=== PATIENT | female | born 1985 | race Caucasian/White ===

== ENCOUNTER 2019-10-11 11:13 | Outpatient (CLI) | payer OTHER, SELFPAY ==
--- NOTE | ~2019-10-11 | US_ITS ---
EXAMINATION: US OB <= 14 weeks fetus DATE: 10/11/2019 11:48 INDICATION: Threatened , first trimester TECHNIQUE: Real-time pelvic transabdominal and transvaginal ultrasound was performed. COMPARISON: None. FINDINGS: The uterus measures 9.9 x 5.7 x 5.0 cm. There is an intrauterine gestational sac. There is a there is a 1.7 x 0.9 x 0.4 cm hypoechoic area adjacent to the gestational sac. A yolk sac is ident ified. heart motion is identified measuring 127 beats per minute (bpm) by M-mode Doppler. The f etal crown rump length measures 4 mm , which correlates with an estimated gestational age of 6 weeks and 1 day(s) (+/-) 4 day(s). The left ovary is not visualized however no left adnexal abnormality is seen. The right ovary measure s 2.5 x 2.1 x 1.6 cm. There is no free fluid in the pelvis. IMPRESSION: 1. Live intrauterine with an estimated gestational age of 6 weeks and 1 day(s) (+/-) 4 day( s) and an estimated delivery date of 06/04/2020. 2. Small subchorionic hemorrhage. Reviewed, dictated and finalized at location A. IMPRESSION: 1. Live intrauterine with an estimated gestational age of 6 weeks and 1 day(s) (+/-) 4 day(s) and an estimated delivery date of 06/04/2020. 2. Small subchorionic hemorrhage.
== END 2019-10-11 11:14 | disposition home or self-care (01) ==
LOC: ANHIMG 11:19
PROVIDERS: Visit Provider Obstetrics & Gynecology
DX: O20.0 Threatened abortion (principal); Z3A.01 Less than 8 weeks gestation of pregnancy
CPT/HCPCS: 76801

== ENCOUNTER 2019-12-19 13:42 | Outpatient (CLI) | payer OTHER, SELFPAY ==
--- NOTE | ~2019-12-19 | US_ITS ---
EXAMINATION: US OB limited DATE: 12/19/2019 14:10 INDICATION: Vaginal bleeding during second trimester TECHNIQUE: Real-time ultrasound of the pelvis was performed. The interpreting radiologist was not pre sent for the study. COMPARISON: 10/11/2019 FINDINGS: There is a single living fetus in breech presentation. The placenta is anterior and normal in appearance. cardiac activity and movement are noted. heart rate is 161 beats per minute (bpm). The amniotic fluid index is subjectively normal. IMPRESSION: 1. Single living fetus in breech presentation. 2. No sonographic correlate for the patient's symptoms. Reviewed, dictated and finalized at location A.
== END 2019-12-19 13:43 | disposition home or self-care (01) ==
LOC: ANHIMG 13:48
PROVIDERS: PCP Internal Medicine; Visit Provider Obstetrics & Gynecology
DX: O20.0 Threatened abortion (principal); Z3A.00 Weeks of gestation of pregnancy not specified
CPT/HCPCS: 76815

== ENCOUNTER 2020-03-28 12:38 | Observation (INO) | payer OTHER, SELFPAY ==
[2020-03-28 13:14] VITALS: BP 117/59; PULSE 76
[2020-03-28 13:31] VITALS: BP 115/56; PULSE 76
[2020-03-28 13:56] VITALS: BMI 56.8
[2020-03-28] MEDS: ACETAMINOPHEN 500 MG TABLET 1000 MG PO (13:58)
[2020-03-28 14:05] VITALS: BMI 56.8
--- NOTE | 2020-03-28 14:10 | OBADM ---
This patient, Radha Pozo, admitted to the OB room OB Post 113 for observation. Patient oriented to hospital policies and general routines including ID bracelet, bed and alarms, visiting hours, pain management, procedures, bathroom and other care routines, personal items, smoking policy, room service/diet, call light, and visiting hours. Patient is encouraged to report perceived risks to care and to ask questions if she does not understand what she is told or what she should do.
--- NOTE | 2020-04-01 14:53 | PM.OBTRLD ---
OB - Triage/Final Diagnosis Final Diagnosis (1) Traumatic injury during in third trimester: Code(s): O9A.213 - Injury, poisoning and certain other consequences of external causes complicating , third trimester Status: Acute
== END 2020-03-28 16:16 | disposition home or self-care (01) ==
PROVIDERS: Admitting Provider Obstetrics & Gynecology; PCP Internal Medicine; Visit Provider Obstetrics & Gynecology
DX: O99.893 Other specified diseases and conditions complicating puerperium (principal); W19.XXXA Unspecified fall, initial encounter; Z3A.30 30 weeks gestation of pregnancy
CPT/HCPCS: A9270; G0378; G0379

== ENCOUNTER 2020-05-26 12:51 | Outpatient (CLI) | payer OTHER, SELFPAY ==
[2020-05-26 13:40] LABS: Hematocrit 36.5 % (37.0-47.0); Hemoglobin 12.5 g/dL (12.0-15.0); Mean Corpuscular HGB Conc 34.2 g/dl (32-36); Mean Corpuscular Hemoglobin 30.4 pg (26-34); Mean Corpuscular Volume 88.8 fl (80-100); Mean Platelet Volume 10.5 fl (7.4-10.4); Platelet Count Result 308 k/mm3 (150-375); Red Blood Count 4.11 M/mm3 (4.2-5.4); Red Cell Distribution Width 14.1 % (11.5-14.5); White Blood Count 7.8 K/mm3 (4.5-10.0)
[2020-05-27 10:15] LABS: Rapid Plasma Reagin Non-Reactive (NonReactive)
== END 2020-05-26 12:52 | disposition home or self-care (01) ==
PROVIDERS: PCP Internal Medicine; Visit Provider Obstetrics & Gynecology
DX: Z34.93 Encounter for supervision of normal pregnancy, unspecified, third trimester (principal); Z3A.00 Weeks of gestation of pregnancy not specified
CPT/HCPCS: 36415; 85027; 86592; 86850; 86900; 86901

== ENCOUNTER 2020-05-27 05:38 | Inpatient (IN) | payer OTHER, SELFPAY ==
[2020-05-26 11:20] VITALS: BP 135/76; PULSE 82; RESP 18; TEMP 36.8
--- NOTE | 2020-05-26 12:07 | PM.IMHP ---
H&P: HPI History of Present Illness Date/Time: 05/26/20 12:07 Chief complaint: Pre-admit Narrative: Radha Pozo is a 35 year old female coming in for scheduled repeat C/S + BTL. no complaints today Review of Systems Review of Systems: All systems reviewed & are unremarkable except as noted in HPI and below PMFSH Past Medical History Medical History (Updated 05/26/20 @ 12:11 by Julisa Shen MD) 2004 Anxiety Depression Miscarriage Surgical History Surgical History (Updated 05/26/20 @ 12:09 by Julisa Shen MD) H/O dilation and curettage Previous section 08-18-09, c/s, full term 37w, male, 8#4, Ubaldo, preeclampsia 12-01-10, c/s, full term 37w, male, 7#11, Juan Ramon, GDM Family History Family History Grandparent Diabetes mellitus Cerebrovascular accident Mother Hypertension Social History Social History Smoking status: Former smoker Smoking end date: 10/10/13 Alcohol intake: never Substance use: never Gender identity (if verbalized by the patient): Female Spiritual care concerns: No Meds Home Medications and Allergies Home Medications Medication Instructions Recorded Confirmed Type docosahexaenoic acid 200 mg capsule mg PO 02/08/20 History metformin 500 mg tablet 500 mg PO BID #60 tablet 02/08/20 02/08/20 Rx Allergies Allergy/AdvReac Type Severity Reaction Status Date / Time No Known Allergies Allergy Unknown Verified 05/20/20 10:09 Exam Const: General: healthy appearing and no acute distress Resp: Auscultation: clear to auscultation bilaterally Cardio: Rate: regular rate Rhythm: regular rhythm GI: Inspection: normal to inspection and non-distended GI Palp: Yes Soft to palpation, No Tenderness to palpation present (GI) and Yes Other GI palpation findings present (gravid) Extrem: General: no calf tenderness and edema bilateral (ankles/feet) Psych: Mental Status: mental status grossly normal Assessment and Plan Assessment and plan (1) Previous delivery affecting : Code(s): O34.219 - Maternal care for unspecified type scar from previous delivery Status: Acute Assessment and Plan: Proceed with repeat C section and BTL. She signed consent after risks, benefits, complications, and alternatives discussed. She expressed understanding and wishes to proceed. (2) Pyelectasis of fetus on ultrasound: Code(s): O35.8XX0 - Maternal care for other (suspected) abnormality and damage, not applicable or unspecified Status: Acute Assessment and Plan: Bilateral pyelectasis and possible right sided aortic arch (otherwise normal echocardiogram). Plan for infant to follow up with pediatrics. Recommended echocardiogram at 2 weeks of age
[2020-05-27] VITALS (59 sets, daily range): BP systolic 82–137; BP diastolic 45–88; PULSE 64–111; RESP 12–20; TEMP 36.3–36.9; O2SAT 91–99; BMI 58.7
--- NOTE | 2020-05-27 06:31 | WPDANESEPPF ---
Anes - Initial Pre Proc Eval Procedure: Operation Date: 05/27/20 07:30 Proposed Procedures p Repeat Section with Bilateral Tubal Ligation - Julisa Shen MD Date/Time: 05/27/20 06:31 Surgeon: Julisa Shen MD Pre Op Diagnosis: C/S Patient Data Age: 35 Gender: F Height: 4 ft 10 in Weight: 127.5 kg Last Vital Signs Pulse 104 H 05/27/20 06:20 BP 130/67 05/27/20 06:20 Allergies Allergy/AdvReac Type Severity Reaction Status Date / Time No Known Allergies Allergy Unknown Verified 05/20/20 10:09 Home Medications Medication Instructions Recorded Confirmed Type docosahexaenoic acid 200 mg capsule mg PO 02/08/20 History metformin 500 mg tablet 500 mg PO BID #60 tablet 02/08/20 02/08/20 Rx Patient hx anesthesia problems: none Family hx anesthesia problems: none PMFSH Past Medical History Medical History (Updated 05/27/20 @ 06:31 by Sandor Cantu MD) 2004 Anxiety Depression Miscarriage Morbid obesity Surgical History Surgical History H/O dilation and curettage Previous section 08-18-10, c/s, full term 37w, male, 8#4, Ubaldo, preeclampsia 6-7-11, c/s, full term 37w, male, 7#11, Juan Ramon, GDM Family History Family History Grandparent Diabetes mellitus Cerebrovascular accident Mother Hypertension Social History Social History Smoking status: Former smoker Smoking end date: 10/10/13 Alcohol intake: never Substance use: never Gender identity (if verbalized by the patient): Female Spiritual care concerns: No Anes - Eval Final PreProcedure Day of Procedure 05/27/20 06:31 Patient weight: super morbidly obese Heart: regular rate and rhythm Lungs: clear to auscultation Airway: Mallampati scale class II Neurological: alert and oriented Last oral intake: >/= 8 hours ASA classification: III Emergent: no Anesthetic plan: proceed Anesthesia type and monitoring: regional spinal Informed Consent: The patient's anesthetic plan of spinal and its attendant risks and benefits were discussed with this high risk patient. Questions were solicited and answers provided to the satisfaction of the patient/family/POA.
[2020-05-27] MEDS: LACTATED RINGERS 1,000 ML 999 ML IV CONT ×3 (06:38→14:55)
--- NOTE | 2020-05-27 06:46 | LDADM ---
This patient, Radha Pozo, was admitted to Labor/Delivery/Recovery 120 on 05/27/20 at 05:38. Plans for labor, pain management and were discussed with patient. Patient/family oriented to hospital policies and general routines including ID bracelet, bed and alarms, visiting hours, pain management, procedures, bathroom and other care routines, personal items, smoking policy, room service/diet and guest tray routines, security routines, and visiting hours. Patient/Family are encouraged to report perceived risks to care and to ask questions if they do not understand what they are told or what they should do. See OBIX for further documentation.
--- NOTE | 2020-05-27 07:44 | P.OP_ITS ---
Procedure Note - Detailed Date of procedure: 05/27/20 Pre-op diagnosis: C/S Prior C section, desires sterilization Post-op diagnosis: same Procedure performed: Repeat LTCS + BTL Description of procedure: She was taken to the operating room where spinal anesthesia was obtained and found to be adequate. She was prepared and draped in the normal sterile fashion in the dorsal supine position with a leftward tilt. A Pfannenstiel skin incision was made over her prior incision with a scalpel and extended to the underlying layer of fascia. The fascia was incised in the midline with the scalpel and extended laterally with the Ahumada scissors. The rectus muscles were , and the peritoneum was entered sharply. The peritoneal incision was extended inferiorly and superiorly with good visualization of the bladder. The bladder blade was inserted. The vesicouterine peritoneum was tented up and entered sharply with the Metzenbaum scissors. The bladder flap was created sharply. The bladder blade was reinser kellie. The uterine incision was made in the lower uterine segment in a transverse fashion. The membranes were ruptured with clear fluid noted. The 's head was delivered atraumatically. The shoulders and body were delivered easily. The cord was clamped x2 and cut. The infant was passed to the awaiting nurse. Cord gas and cord blood was obtained. The placenta was manually extracted. The uterus was exteriorized and cleared of all clots and debris. The uterine incision was closed using 0 Vicryl in a running locked fashion. A 2nd layer of the same suture was used for hemostasis and reinforcement. Attention was then turned to the right fallopian tube. The mid isthmic portion of the fallopian tube was grasped with a Kenton clamp. A defect was made in the mesosalpinx with the Bovie cautery. Two free ties of 0 plain gut were placed around the tube, and the intervening segment of fallopian tube was excised using the Metzenbaum scissors. The same procedure was performed on the left fallopian tube. The uterine incision was reinspected and found to be hemostatic. The uterus was returned to the abdomen. The gutters were cleared of all clots and debris. The rectus muscles were inspected. Any bleeding points were cauterized. The rectus muscles were reapproximated using 1 [id number] 0 Vicryl suture. The fascia was then closed using 0 Vicryl in a running fashion. The subcutaneous tissue was irrigated. Any bleeding points were cauterized. The subcutaneous tissue was reapproximated using 2 0 Vicryl [id number] sutures. The skin was then closed with Insorb absorbable erin. She tolerated the procedure well. Sponge, lap, needle, and instrument counts were correct x2. She was taken to the recovery area in stable condition. Anesthesia: spinal Surgeon: Julisa Shen MD Estimated blood loss (mL): 250 Drains: Yes (Hughes) Packing: No Pathology: none sent Complications: No immediate complications Condition: stable Disposition: floor Findings: Male infant, cephalic, Apgars 7/9, weight 7# 15oz, normal uterus, tubes, and ovaries
--- NOTE | 2020-05-27 12:35 | PC.NURSE ---
Addendum entered by Ani Sam RN 05/27/20 12:36: admitted to room 287 at 1109. Original Note: Patient transferred to post room # 287 per stretcher. Support person present. Oriented to unit, room, information board, rooming in, admission packet and security measures. Patient verbalizes understanding.
[2020-05-27] MEDS: KETOROLAC 30 MG/ML VIAL (*BKC) IV PUSH (15:04)
[2020-05-27] MEDS: HYDROcodone/acetaminophen (*CRX) 5-325 MG TABLET 1 TAB PO ×2 (15:04→19:40)
[2020-05-27] MEDS: SIMETHICONE 80 MG TAB.CHEW PO ×2 (15:05→22:44)
[2020-05-27] MEDS: IBUPROFEN 600 MG TABLET PO (22:44)
[2020-05-27] MEDS: HYDROcodone/acetaminophen (*CRX) 10-325 MG TABLET 1 TAB PO (22:44)
[2020-05-28] VITALS: BP 105/56; PULSE 98; RESP 18; TEMP 36.4; O2SAT 98
[2020-05-28 04:00] VITALS: BP 115/59; PULSE 97; RESP 18; TEMP 36.2; O2SAT 98
[2020-05-28] MEDS: IBUPROFEN 600 MG TABLET PO ×3 (04:45→19:42)
[2020-05-28] MEDS: HYDROcodone/acetaminophen (*CRX) 10-325 MG TABLET 1 TAB PO ×4 (04:45→23:41)
[2020-05-28] MEDS: SIMETHICONE 80 MG TAB.CHEW PO ×4 (04:45→19:42)
[2020-05-28 05:35] LABS: Basophils Absolute Auto 0.1 K/mm3 (0.0-0.1); Basophils Percent Auto 0.5 % (0.2-1.2); Eosinophils Absolute Auto 0.2 K/mm3 (0-0.3); Eosinophils Percent Auto 1.7 % (0-4.4); Hemoglobin 9.5 g/dL (12.0-15.0); Immature Granulocyte Absolute 0.05 K/mm3 (0.00-0.031); Immature Granulocyte Percent A 0.5 % (0-0.5); Lymphocytes Absolute Auto 2.94 K/mm3 (0.9-3.2); Lymphocytes Percent Auto 29.4 % (18.3-44.2); Mean Corpuscular HGB Conc 32.8 g/dl (32-36); Mean Corpuscular Hemoglobin 29.9 pg (26-34); Mean Corpuscular Volume 91.2 fl (80-100); Mean Platelet Volume 10.4 fl (7.4-10.4); Monocytes Percent Auto 10.1 % (2.6-8.5); Neutrophils Absolute Auto 5.8 K/mm3 (1.3-6.7); Neutrophils Percent Auto 57.8 % (45.5-73.1); Platelet Count Result 258 k/mm3 (150-375); Red Blood Count 3.18 M/mm3 (4.2-5.4); Red Cell Distribution Width 14.3 % (11.5-14.5)
[2020-05-28] MEDS: DOCUSATE SODIUM 100 MG CAPSULE PO ×2 (07:37→15:19)
[2020-05-28] MEDS: POLYSACCHARIDE IRON COMPLEX 150 MG CAPSULE PO ×2 (07:37→15:19)
--- NOTE | 2020-05-28 07:44 | PM.OBPNVD ---
OB - PN: Subj Subjective Date/time seen: 05/28/20 07:44 Patient comments: no complaints, pain well controlled, incisional pain, tolerating diet, flatus present and other (Lochia similar to menses) baby status: doing well OB - PN: Obj Data Labs CBC & Chem 7: 05/28/20 04:39 Labs: Laboratory Results - last 24 hr 05/28/20 04:39 WBC 10.0 RBC 3.18 L Hgb 9.5 L D Hct 29.0 L MCV 91.2 MCH 29.9 MCHC 32.8 RDW 14.3 Plt Count 258 MPV 10.4 Immature Gran % (Auto) 0.5 Neut % (Auto) 57.8 Lymph % (Auto) 29.4 Rutherford % (Auto) 10.1 H Eos % (Auto) 1.7 Baso % (Auto) 0.5 Lymph # (Auto) 2.94 Rutherford # (Auto) 1.0 H Eos # (Auto) 0.2 Baso # (Auto) 0.1 Abs Immat Gran (auto) 0.05 H Absolute Neuts (auto) 5.8 Absolute Nucleated RBC 0.0 Nucleated RBC % 0.0 OB - PN A/P Plan day: 1 (s/p C section, doing well) Plan: routine care Time Spent With Patient Time: Total time spent is greater than 50% in coordination of care (as documented) at patient's floor/unit and/or counseling patient: Exam Const: General: no acute distress Resp: Auscultation: clear to auscultation bilaterally Cardio: Rate: regular rate Rhythm: regular rhythm GI: Inspection: non-distended, incision (Intact without erythema, drainage, or induration) and other (Fundus firm and nontender at umbilicus) GI Palp: Yes abdominal tenderness (appropriate ) and Yes Soft to palpation Extrem: General: no edema
[2020-05-28 08:00] VITALS: BP 133/63; PULSE 95; RESP 18; TEMP 36.4; O2SAT 98
--- NOTE | 2020-05-28 11:24 | WPDANLDPN2 ---
Anes-Prog Note L&D Date/Time: 05/28/20 11:24 Comfortable throughout: section Neuraxial method: spinal Epidural/Spinal procedure site: clean & non-tender Neuro status: Neuro function grossly intact. Cardiovascular status: normal Respiratory status: normal Airway patency: baseline Mental status: baseline Post-Op hydration status: normal Vital Signs: Last Vital Signs Temp 36.2 C L 05/28/20 04:00 Pulse 97 05/28/20 04:00 Resp 18 05/28/20 04:00 BP 115/59 L 05/28/20 04:00 Pulse Ox 98 05/28/20 04:00 Pain score (VAS): 4 I/O: Intake & Output 05/27/20 05/28/20 05/28/20 23:59 07:59 15:59 Intake Total 1200 1600 Output Total 1200 1900 Balance 0 -300 Post-procedural complaints: none Patient feedback: Patient satisfied with anesthetic care.
--- NOTE | 2020-05-28 11:24 | WPDANLDNPN2 ---
Anes-Prog Note L&D-Neuraxial Date/Time: 05/28/20 11:24 Neuraxial medications: intrathecal PF morphine Opiod-related complaints: none Patient feedback: Patient satisfied with post-operative pain management.
[2020-05-28] MEDS: HYDROcodone/acetaminophen (*CRX) 5-325 MG TABLET 1 TAB PO ×2 (12:31→15:18)
--- NOTE | 2020-05-28 17:00 | PC.NURSE ---
Patient was given the opportunity to view the discharge video Mother & Baby Care, The First Two Weeks and to ask questions. Patient declined viewing the video and has been given the mother/baby guide for home reference.
[2020-05-28 20:00] VITALS: BP 128/71; PULSE 100; RESP 18; TEMP 36.4; O2SAT 98
[2020-05-29] MEDS: HYDROcodone/acetaminophen (*CRX) 10-325 MG TABLET 1 TAB PO ×2 (05:06→08:57)
[2020-05-29] MEDS: IBUPROFEN 600 MG TABLET PO (05:06)
[2020-05-29] MEDS: TETANUS,DIPHTHERIA,AC PERTUSSIS ADULT (0.5 ML) BOOSTRIX IM (06:57)
[2020-05-29] MEDS: POLYSACCHARIDE IRON COMPLEX 150 MG CAPSULE PO (07:00)
[2020-05-29] MEDS: SIMETHICONE 80 MG TAB.CHEW PO (07:00)
[2020-05-29] MEDS: DOCUSATE SODIUM 100 MG CAPSULE PO (07:01)
[2020-05-29 07:21] VITALS: BP 136/78; PULSE 100; PULSE 103; RESP 18; TEMP 36.2; O2SAT 100; O2SAT 98
--- NOTE | 2020-05-29 07:32 | PC.NURSE ---
Self care and infant care discharge instructions given pt. including follow up visit date and time. Pt. verbalized understanding. No questions or concerns voiced.
--- NOTE | 2020-05-29 10:10 | PM.OBPNVD ---
OB - PN: Subj Subjective Date/time seen: 05/29/20 10:10 Patient comments: no complaints, pain well controlled, tolerating diet, flatus present and other (Ambulating and voiding without problems. Lochia similar to menses) baby status: doing well OB - PN: Obj Data Labs CBC & Chem 7: 05/28/20 04:39 OB - PN A/P Plan day: 2 (s/p C section, doing well) Plan: routine care and discharge home (Follow up in 1 week) Time Spent With Patient Time: Total time spent is greater than 50% in coordination of care (as documented) at patient's floor/unit and/or counseling patient: Time with patient: less than 15 minutes Exam Const: General: no acute distress Resp: Auscultation: clear to auscultation bilaterally Cardio: Rate: regular rate Rhythm: regular rhythm GI: Inspection: non-distended, incision (Intact without erythema, drainage, or induration) and other (Fundus firm and nontender below umbilicus) GI Palp: Yes abdominal tenderness (appropriate) and Yes Soft to palpation Extrem: General: no edema
--- NOTE | 2020-05-29 10:13 | PM.OBDSVD ---
DS: Admitting Diagnosis Admitting Diagnosis Admitting Diagnosis: C/S DS: Discharge Diagnosis Discharge Diagnosis (1) Previous delivery affecting : Code(s): O34.219 - Maternal care for unspecified type scar from previous delivery Status: Acute (2) Encounter for sterilization: Code(s): Z30.2 - Encounter for sterilization Status: Acute OB - DS: Summary OB Procedures : None OB Procedures Intrapartum: and Tubal ligation OB Procedures: : None Peripartum Data Delivery Method: Section Procedures: Procedures Operation Date: 05/27/20 07:30 Actual Procedures Side Surgeon p Section Bilateral Julisa Shen MD s Post- Tubal Ligation Julisa Shen MD complications: none Status at Discharge Functional status at discharge: independent ambulation Overall status at discharge: patient is progressing back to baseline Time Spent with Patient Time attestation: Total time spent providing and/or coordinating discharge services: Time spent: Less than 30 minutes DS: Data Data Completed and Pending Completed studies during hospitalization: Pending at discharge 05/27/20 08:25 Surgical [PTH] Routine Discharge Plan Discharge Attending physician on discharge: Julisa Shen Discharging Clinician: Julisa Shen Patient Disposition: Home, Self-Care Activity: may shower, may drive after 2 weeks, pelvic rest and other - see discharge instructions Diet: heart healthy Wound Care Instructions: incision open to air Discharge Instructions: Education: Mom and Baby Guide Given to: Mother Follow-Up: Call your delivering provider's office for an appointment to be seen in: 1 Week Mom and baby should come to the [facility] for the follow-up appointment. Appointment Date/Time: Saturday, May 30, 2020 at 10:00 am What to expect at your follow-up visit: Blood Pressure Check Physical Assessment Call [phone] if you are unable to keep your appointment time. BREAST CARE: * Wear a snug supportive bra. Bottle Feeding: * May apply ice packs ABDOMINAL INCISION: (if applicable) * Allow incision to air dry * Do NOT use lotions for powders on your incision * When showering, allow soap and water to run over the incision, but do not wash incision EPISIOTOMY/PERINEAL CARE: * Until bleeding stops, use your bambi bottle after urinating * Change your pad frequently throughout the day * You may take sitz baths several times a day (fill your bathtub with warm water and soak for 20 minutes.) Do NOT bathe in the water * No tub baths until seen by your physician - You may shower ACTIVITY: * Rest as much as possible. * Do not exercise or lift anything heavier than your baby (such as laundry or other children.) * Avoid stairs or driving as much as possible. * Do not put anything into the vagina. No douching, tampons, or sexual activity until seen by physician. NOTIFY PHYSICIAN IF YOU HAVE ANY QUESTIONS OR IF ANY OF THE FOLLOWING SYMPTOMS OCCUR: * If your incision becomes red, swollen, or more painful than what you have experienced in the hospital. * If your vaginal bleeding becomes foul smelling. * If your vaginal bleeding becomes more heavy than a period or if your bleeding changes from pink to bright red. However, you may pass an occasional walnut-sized clot once or twice for the first week . * If you experience a sharp, shooting pain in you calves. * If you discover a hard, reddened area on your breast or if you experience flu-like symptoms. DIET: * Eat regular, well-balanced meals. * Drink plenty of fluids daily. If , drink to thirst. Patient Instructions: Antibiotic Form Stand Alone Forms: General Discharge Information Follow-up/Referrals: Julisa Shen MD [Physician] - 1 Week Discharge Medications:
[2020-05-30 10:34] VITALS: BP 132/78; PULSE 91; RESP 20; TEMP 36.9; O2SAT 100
== END 2020-05-29 10:36 | disposition home or self-care (01) | DRG 540 ==
LOC: ANHLDR 05:41 → ANHOB2 11:18
PROVIDERS: Admitting Provider Obstetrics & Gynecology; PCP Internal Medicine; Visit Provider Obstetrics & Gynecology
PROC: 10D00Z1 Extraction of Products of Conception, Low, Open Approach (ICD-10-PCS; CPT 59514; principal; 2020-05-27 07:30)
PROC: 10D00Z1 Extraction of Products of Conception, Low, Open Approach (ICD-10-PCS; CPT 58605; 2020-05-27 07:30)
DX: O34.211 Maternal care for low transverse scar from previous cesarean delivery (principal); Z37.0 Single live birth; Z3A.39 39 weeks gestation of pregnancy; O35.8XX0 Maternal care for other (suspected) fetal abnormality and damage, not applicable or unspecified; O99.344 Other mental disorders complicating childbirth; F41.8 Other specified anxiety disorders; Z30.2 Encounter for sterilization; O99.214 Obesity complicating childbirth; E66.01 Morbid (severe) obesity due to excess calories; Z23 Encounter for immunization
CPT/HCPCS: 36415; 85025; 88302; 90471; 90653; 90715; A9270; G0008; J1200; J1885; J2274; J2370; J2590; J7120

== ENCOUNTER 2021-05-18 13:30 | Emergency (ER) | payer OTHER, SELFPAY ==
--- NOTE | 2021-05-18 13:33 | ED.ANXIETY ---
HPI - Anxiety General Chief Complaint: Anxiety Stated Complaint: Tight chest, anixety attack. Time Seen by Provider: 05/18/21 13:33 Source: patient and RN notes reviewed History of Present Illness HPI narrative: Patient is a 36-year-old female who presents the urgent care with complaints of heightened anxiety over the last week and a half since she has been out of her Prozac. Patient states that she has not seen her PCP in over a year since she had her baby. Patient states that she was getting the refills of the Prozac while she was and not using them and therefore had several refills to use. Patient states that she called her PCP today and stated that she was having severe anxiety and they did give her an appointment for June 10 however they refused to refill her prescription of Prozac. Patient states that she has chest tightness and has been irritable. No other acute complaints. Patient is visibly anxious and tearful. No other acute complaints. No acute distress noted. Patient aware of the plan of care. Some parts of this dictation were generated by voice recognition software and may contain typographical and/or grammatical inaccuracies. Related Data Home Medications Medication Instructions Recorded Confirmed bupropion HCl 200 mg PO BID 05/18/21 05/18/21 metformin 500 mg PO BID 05/18/21 05/18/21 Allergies Allergy/AdvReac Type Severity Reaction Status Date / Time No Known Allergies Allergy Unknown Verified 05/18/21 13:49 Review of Systems Review of Systems: CONSTITUTIONAL: Denies fever, chills, or sweats. EYES: Denies visual changes, redness, or discharge. ENT: Denies rhinorrhea, congestion, sore throat, or otalgia. CARDIOVASCULAR: Denies chest pain, palpitations, or edema. RESPIRATORY: Denies cough or dyspnea. GASTROINTESTINAL: Denies abdominal pain, nausea, vomiting, or diarrhea. GENITOURINARY: Denies dysuria or hematuria. SKIN: Denies rash or itching. MUSCULOSKELETAL: Denies back pain, joint pain, or myalgia. NEUROLOGIC: Denies headache, numbness, or weakness. PSYCHIATRIC: Reports of severe chronic anxiety and depression All other systems reviewed are negative, except as documented in HPI. FOR[facility]LY [facility] Past Medical History Medical History 2004 Anxiety Depression Miscarriage x1 Morbid obesity Surgical History Surgical History H/O dilation and curettage History of bilateral tubal ligation Previous section x3 Family History Family History Grandparent Diabetes mellitus Cerebrovascular accident Mother Hypertension Social History Social History Smoking status: Former smoker Tobacco type: cigarettes Smoking end date: 10/10/13 Alcohol intake: current Alcohol use details: occasional Substance use: never Gender identity (if verbalized by the patient): Female Spiritual care concerns: No Comments At the time of my signature, I reviewed and agree with the nursing past medical, surgical, social, and family history. There is no relevant family history pertinent to the patient complaint. Exam Narrative: GENERAL: This is a well-nourished, well-developed patient. Visibly anxious and tearful HEAD: normocephalic, atraumatic. EYES: PERRL. Sclera clear/white. Vision is grossly intact. EARS: External ears normal NOSE: External nose normal with no obvious nasal discharge, nares without redness, no rhinorrhea. THROAT: Mucous membranes moist NECK: Neck supple CARDIOVASCULAR: Regular rate and rhythm without murmurs, gallops, or rubs. RESPIRATORY: Clear to auscultation. Breath sounds equal bilaterally. No wheezes, rales, or rhonchi. SKIN: warm, intact with no suspicious lesions or rash, good texture and turgor. NEURO: a
[2021-05-18 13:34] VITALS: BP 129/69; PULSE 84; RESP 20; TEMP 36.5; O2SAT 100
== END 2021-05-18 14:00 | disposition home or self-care (01) ==
PROVIDERS: Emergency Provider Nurse Practitioner Family
DX: F41.9 Anxiety disorder, unspecified (principal); Z87.891 Personal history of nicotine dependence; F32.A Depression, unspecified; E66.01 Morbid (severe) obesity due to excess calories; Z68.41 Body mass index [BMI] 40.0-44.9, adult
CPT/HCPCS: 99213; G0463

== ENCOUNTER 2021-07-01 13:00 | Emergency (ER) | payer OTHER, SELFPAY ==
--- NOTE | ~2021-07-01 | XR_ITS ---
EXAMINATION: XR chest 2V DATE: 07/01/2021 14:10 INDICATION: Worsening cough. Chest tightness. TECHNIQUE: Frontal and lateral views of the chest were obtained. COMPARISON: Chest 2 views 04/26/2019 FINDINGS: The chest demonstrates clear lungs without pneumonia, pleural effusion, or pneumothorax. Th e heart size is normal. IMPRESSION: 1. No acute cardiopulmonary disease. Reviewed, dictated and finalized at location A. [facility]
[2021-07-01 13:45] VITALS: BP 134/73; PULSE 62; RESP 20; TEMP 37.1; O2SAT 99
--- NOTE | 2021-07-01 15:05 | ED.URI ---
HPI - URI/Sore Throat General Chief Complaint: Upper Respiratory Infection Stated Complaint: Headache/Ear Pain/No Smell Time Seen by Provider: 07/01/21 14:51 Source: patient and RN notes reviewed History of Present Illness HPI Narrative: Patient is a 36-year-old female who presents the urgent care with complaints of bilateral ear pain, headache, no sense of smell. Patient states that she has had symptoms since June 13 and was Covid +1-week ago on a test. Patient states she still having extreme fatigue, productive cough. Denies any fevers, nausea, vomiting, chest pain. Patient was not vaccinated. Patient has been using DayQuil and [place] without much symptom relief. No other acute complaints. No acute distress noted. Patient read the plan of care. Some parts of this dictation were generated by voice recognition software and may contain typographical and/or grammatical inaccuracies. Related Data Home Medications Medication Instructions Recorded Confirmed bupropion HCl 200 mg PO BID 05/18/21 05/18/21 bupropion HCl 300 mg PO DAILY 07/01/21 07/01/21 Allergies Allergy/AdvReac Type Severity Reaction Status Date / Time No Known Allergies Allergy Unknown Verified 07/01/21 13:55 Review of Systems Review of Systems: CONSTITUTIONAL: Denies fever, chills, or sweats. Reports of extreme fatigue EYES: Denies visual changes, redness, or discharge. ENT: Reports of congestion, inability to smell and bilateral otalgia CARDIOVASCULAR: Denies chest pain, palpitations, or edema. RESPIRATORY: Denies cough or dyspnea. GASTROINTESTINAL: Denies abdominal pain, nausea, vomiting, or diarrhea. GENITOURINARY: Denies dysuria or hematuria. SKIN: Denies rash or itching. MUSCULOSKELETAL: Denies back pain, joint pain, or myalgia. NEUROLOGIC: Reports of headache All other systems reviewed are negative, except as documented in HPI. [facility] Past Medical History Medical History 2004 Anxiety Depression Miscarriage x1 Morbid obesity Surgical History Surgical History H/O dilation and curettage History of bilateral tubal ligation Previous section x3 Family History Family History Grandparent Diabetes mellitus Cerebrovascular accident Mother Hypertension Social History Social History Smoking status: Former smoker Tobacco type: cigarettes Smoking end date: 10/10/13 Alcohol intake: current Alcohol use details: occasional Substance use: never Substance use type: does not use Gender identity (if verbalized by the patient): Female Spiritual care concerns: No Comments At the time of my signature, I reviewed and agree with the nursing past medical, surgical, social, and family history. There is no relevant family history pertinent to the patient complaint. Exam Narrative: GENERAL: This is a well-nourished, well-developed patient. Appears fatigued HEAD: normocephalic, atraumatic. EYES: PERRL. Sclera clear/white. Vision is grossly intact. EARS: External ears normal, auditory canals clear and without drainage, TMs normal without perforation. Hearing grossly intact. NOSE: External nose normal with no obvious nasal discharge, nares without redness, no rhinorrhea. THROAT: Mucous membranes moist, posterior pharynx clear. Moderate postnasal drainage NECK: Neck supple, non-tender without lymphadenopathy CARDIOVASCULAR: Regular rate and rhythm without murmurs, gallops, or rubs. RESPIRATORY: Clear to auscultation. Diminished bibasilar SKIN: warm, intact with no suspicious lesions or rash, good texture and turgor. NEURO: awake, alert, and oriented to person, place and time. There were no obvious focal neurologic abnormalities. EXTREMITIES: No clubbing, cy
== END 2021-07-01 15:15 | disposition home or self-care (01) ==
PROVIDERS: Emergency Provider Nurse Practitioner Family; PCP Physician Assistant
DX: R53.82 Chronic fatigue, unspecified (principal); U09.9 Post COVID-19 condition, unspecified; Z87.891 Personal history of nicotine dependence; F41.9 Anxiety disorder, unspecified; F32.A Depression, unspecified
CPT/HCPCS: 71046; 99213; G0463

== ENCOUNTER 2022-11-08 12:34 | Emergency (ER) | payer OTHER, SELFPAY ==
[2022-11-08 12:38] VITALS: BP 143/84; PULSE 74; RESP 20; TEMP 37.1; O2SAT 100
--- NOTE | 2022-11-08 12:55 | ED.URI ---
HPI - URI/Sore Throat General Chief Complaint: Upper Respiratory Infection Stated Complaint: sore throat Source: patient and RN notes reviewed History of Present Illness HPI Narrative: 37-year-old female presents to urgent care with complaints of a sore throat x2 weeks. Reports associated painful swallowing. patient denies any fevers, chills, earache, chest pain, shortness of breath, or vomiting. Patient has not taking anything for her symptoms. Some parts of this dictation were generated by voice recognition software and may contain typographical and/or grammatical inaccuracies. Related Data Home Medications Medication Instructions Recorded Confirmed bupropion HCl 200 mg tablet,12 hr 200 mg PO BID 05/18/21 05/18/21 sustained-release bupropion HCl 300 mg 24 hr tablet, 300 mg PO DAILY 07/01/21 07/01/21 extended release Allergies Allergy/AdvReac Type Severity Reaction Status Date / Time No Known Allergies Allergy Unknown Verified 07/01/21 13:55 Review of Systems Review of Systems: Pertinent positives and pertinent negatives per HPI. PMFSH Past Medical History Medical History 2004 Anxiety Depression Miscarriage x1 Morbid obesity Surgical History Surgical History H/O dilation and curettage History of bilateral tubal ligation Previous section x3 Family History Family History Grandparent Diabetes mellitus Cerebrovascular accident Mother Hypertension Social History Social History Smoking status: Former smoker Tobacco type: cigarettes Smoking end date: 10/10/13 Alcohol intake: current Alcohol use details: occasional Substance use: never Substance use type: does not use Gender identity (if verbalized by the patient): Female Spiritual care concerns: No Comments At the time of my signature, I reviewed and agree with the nursing past medical, surgical, social, and family history. There is no relevant family history pertinent to the patient complaint. Exam Narrative: GENERAL: This is a well-nourished, well-developed patient, in no apparent distress. HEAD: normocephalic, atraumatic. EYES: Sclera clear/white. Vision is grossly intact. EARS: External ears normal, auditory canals clear and without drainage, TMs normal without perforation. Hearing grossly intact. NOSE: External nose normal with no obvious nasal discharge, nares without redness, no rhinorrhea. THROAT: Mucous membranes moist, posterior pharynx erythemic. RIght side of pharynx noted to have a dime-sized, white patch, possibly ulcer. NECK: Neck supple, non-tender without lymphadenopathy, masses or thyromegaly. CARDIOVASCULAR: Regular rate and rhythm without murmurs, gallops, or rubs. RESPIRATORY: Clear to auscultation. Breath sounds equal bilaterally. No wheezes, rales, or rhonchi. SKIN: warm, intact with no suspicious lesions or rash, good texture and turgor. NEURO: awake, alert, and oriented to person, place and time. There were no obvious focal neurologic abnormalities. Course Course Level of Care: Express Care Visit Vital Signs Vital signs: Vital Signs Temperature 98.7 F 11/08/22 12:38 Pulse Rate 74 11/08/22 12:38 Respiratory Rate 20 11/08/22 12:38 Blood Pressure 143/84 H 11/08/22 12:38 Pulse Oximetry 100 11/08/22 12:38 Oxygen Delivery Room Air 11/08/22 12:38 Temperature 98.7 F 11/08/22 12:38 Pulse Rate 74 11/08/22 12:38 Respiratory Rate 20 11/08/22 12:38 Blood Pressure 143/84 H 11/08/22 12:38 Pulse Oximetry 100 11/08/22 12:38 Oxygen Delivery Room Air 11/08/22 12:38 Reviewed MDM - URI/Sore Throat MDM Narrative Medical decision making narrative: After 24 hours on antibiotics throw
== END 2022-11-08 13:10 | disposition home or self-care (01) ==
PROVIDERS: Emergency Provider Nurse Practitioner Family; PCP Internal Medicine
DX: J02.0 Streptococcal pharyngitis (principal); Z87.891 Personal history of nicotine dependence; F41.9 Anxiety disorder, unspecified; F32.A Depression, unspecified; E66.01 Morbid (severe) obesity due to excess calories; Z68.41 Body mass index [BMI] 40.0-44.9, adult
CPT/HCPCS: 87880; 99213; G0463